=== PATIENT | male | born 2000 | race Caucasian/White ===

== ENCOUNTER 2024-05-06 19:25 | Emergency (ER) | payer OTHER ==
[~2024-05-06] VITALS: Ht 170.2 cm; Wt 88.9 kg
[2024-05-06 19:36] VITALS: BP 132/75; PULSE 92; RESP 20; TEMP 99.2; O2SAT 98
[2024-05-06] MEDS ORDERED: PENI500T20 PO (19:43)
[2024-05-06] MEDS ORDERED: IBUP-2213 PO (19:43)
[2024-05-06 19:48] VITALS: BP 132/75; PULSE 92; RESP 20; TEMP 99.2; O2SAT 98
[2024-05-06 20:43] LABS: FLU A ANTIGEN negative (NEGATIVE); FLU B ANTIGEN NEGATIVE (NEGATIVE)
== END 2024-05-06 19:48 | disposition home or self-care (01) ==
LOC: MED 19:25
DX: J02.0 Streptococcal pharyngitis (principal); Z20.822 Contact with and (suspected) exposure to COVID-19; Z79.899 Other long term (current) drug therapy
CPT/HCPCS: 87081; 99283